=== PATIENT | female | born 1970 | race Caucasian/White ===

== ENCOUNTER 2018-12-26 19:10 | Emergency (ER) | payer MEDICAID ==
[~2018-12-26] VITALS: Ht 165.1 cm; Wt 63.5 kg
[2018-12-26 19:15] VITALS: BP_SYST 124
--- NOTE | 2018-12-26 19:23 | NUR ---
Patient to ER bed 06 for evaluation. Side rails up. Report given to EDY LYNN.
--- NOTE | 2018-12-26 19:30 | NUR ---
Pt came into the ED for pressure around her nose radiating to R cheek and R ear for the last 2 days. New onset pressure radiating towards R neck today. Denies n/v/d or fever. Pt has been taking tylenol with no relief. Pt recently recovering from flu. No other complaints/injuries noted. Will cont. to monitor.
--- NOTE | 2018-12-26 19:35 | NUR ---
LATOSHA Diaz at bedside examining patient.
--- NOTE | 2018-12-26 19:37 | NUR ---
Medication administered. Pt tolerated well. No adverse reactions noted.
[2018-12-26 19:44] VITALS: BP_SYST 124
--- NOTE | 2018-12-26 19:44 | NUR ---
Note undone in EDM - 12/26/18 at 2001 by [email or web address] Patient given written and verbal discharge instructions and verbalizes understanding. ER MD Dr. Martin discussed with patient the results and treatment provided. Patient in stable condition. ID arm band removed. Rx of azithromycin and flonase given. Patient educated on pain management and to follow up with PMD within 2-3 days. Pain Scale 3/10, however, pt reports having OTC pain medication and will take it at home. Opportunity for questions provided and answered. Medication side effect fact sheet provided.
--- NOTE | 2018-12-26 19:44 | NUR ---
Patient given written and verbal discharge instructions and verbalizes understanding. ER MD Dr. Martin discussed with patient the results and treatment provided. Patient in stable condition. ID arm band removed. Rx of azithromycin and flonase given. Patient educated on pain management and to follow up with PMD within 2-3 days. Pain Scale 3/10, however, pt reports having OTC pain medication and will take it at home. Pt able to ambulate with steady gait, no signs of acute distress. NO SOB. Opportunity for questions provided and answered. Medication side effect fact sheet provided.
[2018-12-26] MEDS ORDERED: AZITHROMYCIN 250 MG TABLET PO ONE (19:45)
== END 2018-12-26 19:44 | disposition home or self-care (01) ==
LOC: SED 19:10
DX: J32.9 Chronic sinusitis, unspecified (principal); R03.0 Elevated blood-pressure reading, without diagnosis of hypertension; Z88.0 Allergy status to penicillin
CPT/HCPCS: 99283; Q0144

== ENCOUNTER 2023-08-05 10:35 | Emergency (ER) | payer MEDICAID, OTHER ==
[~2023-08-05] VITALS: Ht 162.6 cm; Wt 65.8 kg
[2023-08-05 10:35] VITALS: BP_SYST 107; PULSE 78; RESP 18; TEMP 97.1; O2SAT 97
[2023-08-05] MEDS ORDERED: LIDOCAINE 2%, 20 ML MDV INJ ONE (11:00)
[2023-08-05] MEDS ORDERED: DIPHTH,PERTUSS(ACELL),TET VAC 0.5 ML VIAL (Tdap) I.M. ONE (11:00)
[2023-08-05] MEDS ORDERED: BACI15OI13 TP (11:36)
[2023-08-05 11:59] VITALS: BP_SYST 107; PULSE 86; RESP 16; TEMP 97.8; O2SAT 95
== END 2023-08-05 11:57 | disposition home or self-care (01) ==
LOC: SED 10:35
DX: S61.411A Laceration without foreign body of right hand, initial encounter (principal); Z88.0 Allergy status to penicillin; Z79.899 Other long term (current) drug therapy; W25.XXXA Contact with sharp glass, initial encounter; Y93.89 Activity, other specified; Y92.89 Other specified places as the place of occurrence of the external cause; Y99.8 Other external cause status
CPT/HCPCS: 99283; 90715; 90471; 12002; J2001